=== PATIENT | male | born 1955 | race American Indian/Alaskan Native ===

== ENCOUNTER 2020-01-11 06:08 | Observation (INO) | payer MEDICARE ==
--- NOTE | 2020-01-09 10:35 | Anesthesia Consultation ---
Anesthesia Consult and Med Hx Date of service: 01/11/20 - Airway Anesthetic Teeth Evaluation: Poor, Dentures (full, upper) ROM Head & Neck: Adequate Mental/Hyoid Distance: Adequate Mallampati Class: Class III Intubation Access Assessment: Possibly Difficult - Pulmonary Exam CTA: Yes - Cardiac Exam Cardiac Exam: RRR - Pre-Operative Health Status ASA Pre-Surgery Classification: ASA3 Proposed Anesthetic Plan: General - Pulmonary Hx Smoking: Yes (quit 2006) Hx Respiratory Symptoms: No Hx Sleep Apnea: No (MAGI PRE SCREEN HIGH RISK.) - Cardiovascular System Hx Hypertension: No Hx Heart Attack/AMI: No Hx Percutaneous Transluminal Coronary Angioplasty (PTCA): No Hx Cardia Arrhythmia: No - Central Nervous System CVA: No Hx Psychiatric Problems: No - Gastrointestinal Hx Gastroesophageal Reflux Disease: No - Endocrine Hx Renal Disease: No Hx Liver Disease: No Hx Insulin Dependent Diabetes: Yes Hx Thyroid Disease: No - Other Systems Hx Obesity: No - Additional Comments Anesthesia Medical History Comments: No hx anesthetic complications. Hx DVTs on coumadin; last dose 01/03/20. Fasting glucose 140s-150s. Instructed to take 20 units levemir (2/3rds usual dose) night before surgery.
[2020-01-09 10:37] LABS: Hemoglobin 13.2 gm/dl (11.8-15.2); Mean Corpuscular HGB Conc 33 % (32-34); Mean Corpuscular Volume 82 fl (84-94); Platelet Count 187 K/mm3 (140-440); Red Blood Count 4.87 M/mm3 (3.65-5.03); Red Cell Distribution Width 13.7 % (13.2-15.2)
[2020-01-09 10:49] LABS: Alanine Aminotransferase 19 units/L (7-56); Albumin 4.3 g/dL (3.9-5); Blood Urea Nitrogen 18 mg/dL (9-20); Calcium 9.2 mg/dL (8.4-10.2); Hemolysis Index 12
[2020-01-09 10:58] LABS: BUN/Creatinine Ratio 26
[~2020-01-11 06:08] MED LIST: ACETAMINOPHEN 500 MG TAB PO SCH; GABAPENTIN 300 MG CAP PO NR; GENTAMICIN/NS 80 MG/100 ML 100 ML IV NR; LACTATED RINGERS 1,000 ML IV SCH; MIDAZOLAM 2 MG/2 ML INJ IV NR; VANCOMYCIN 1,250 MG in SODIUM CHLORIDE 0.9% 250ML 250 ML IV NR; VANCOMYCIN/NS 1 GM/250 ML 1 GM/250 ML BAG IV NR
[2020-01-11] MEDS ORDERED: SODIUM CHLORIDE 0.9% 500 ML 500 ML ONE (06:24)
[2020-01-11] MEDS ORDERED: GENTAMICIN 40 MG/ML VIAL 2 ML ONE (06:24)
[2020-01-11] MEDS ORDERED: NEOMY 40 MG/POLYMYXIN B 200,000 UNITS/ML (GU) AMPULE IR ONE ×2 (06:24→08:51)
[2020-01-11] MEDS ORDERED: BUPIVACAINE/PF (0.5%) 5 MG/1 ML 30 ML VIAL INFILTRATI ONE ×2 (06:24→08:46)
[2020-01-11] MEDS ORDERED: rifAMPin 600 MG VIAL ONE (06:26)
[2020-01-11] MEDS ORDERED: SODIUM CHLORIDE 0.9% 50 ML ONE (06:26)
[2020-01-11] MEDS ORDERED: SODIUM CHLORIDE P/F VIAL 10 ML 10 ML ONE (06:26)
[2020-01-11] MEDS ORDERED: BACTERIOSTATIC SODIUM CHLORIDE 0.9% 30 ML VIAL INFILTRATI ONE (06:46)
[2020-01-11] MEDS ORDERED: propofoL 200 MG/20 ML VIAL IV ONE (07:17)
[2020-01-11] MEDS ORDERED: HYDROmorphone 1 MG/1 ML INJ ONE (07:17)
[2020-01-11] MEDS ORDERED: LIDOCAINE MPF (2%) 20 MG/1 ML VIAL 5 ML ONE (07:19)
[2020-01-11] MEDS ORDERED: HYDROmorphone 1 MG/1 ML INJ IV PRN (07:23)
--- NOTE | 2020-01-11 07:24 | Anesthesia Day of Surgery ---
Anesthesia Day of Surgery - Day of Surgery Patient Examined: Yes Patient H&P Reviewed: Yes Patient is NPO: Yes
--- NOTE | 2020-01-11 07:33 | Short Stay Summary ---
Short Stay Documentation Date of service: 01/11/20 Narrative H&P: 64r old male with impotence unresponsive to medical managment wants implant - History Past Medical History: hypertension, hyperlipidemia, pulmonary embolism Social history: no significant social history - Allergies and Medications Current Medications: Allergies No Known Allergies Allergy (Verified 12/29/19 14:27) Home Medications Medication Instructions Recorded Confirmed Last Taken Type Insulin Aspart (Nf) [NovoLOG 6 units SQ TID 12/29/19 01/09/20 Unknown History Flexpen] Warfarin [Coumadin] 7.5 mg PO 3XW 12/29/19 12/29/19 Unknown History Warfarin [Coumadin] 10 mg PO 4XW 12/29/19 12/29/19 Unknown History AtorvaSTATin [Lipitor] 10 mg PO QHS 01/09/20 01/09/20 Unknown History Insulin Detemir [Levemir Flextouch] 30 unit SQ QHS 01/09/20 01/09/20 Unknown History Tamsulosin [Flomax] 0.4 mg PO QDAY 01/09/20 01/09/20 Unknown History Active Medications Acetaminophen (Tylenol) 1,000 mg PO PREOP ROSALEE Stop: 01/11/20 22:00 Gabapentin (Gabapentin) 300 mg PO PREOP NR Stop: 01/11/20 22:00 Hydromorphone HCl (Dilaudid) 0.5 mg IV Q10MIN PRN PRN Reason: Pain , Severe (7-10) Stop: 01/11/20 23:00 Lactated Ringer's (Lactated Ringers) 1,000 mls @ 100 mls/hr IV DIRECT ROSALEE Stop: 01/11/20 23:59 Gentamicin Sulfate/Sodium Chloride (Gentamicin/Ns 80 Mg/100 Ml) 100 mls @ 200 mls/hr IV PREOP NR; Protocol Stop: 01/11/20 22:00 Vancomycin HCl 1,250 mg/ (Sodium Chloride) 275 mls @ 166.667 mls/hr IV PREOP NR Stop: 01/11/20 22:00 Last Admin: 01/11/20 07:18 Dose: 166.667 mls/hr Documented by: Midazolam HCl (Versed) 2 mg IV PREOP NR Stop: 01/11/20 22:00 - Physical exam General appearance: no acute distress, well-nourished HEENT: Atraumatic, PERRLA Lungs: Clear to auscultation, Normal air movement Heart: Regular rate, No murmurs Gastrointestinal: normal Male Genitourinary: normal Rectal Exam: deferred Extremities: no ischemia, No edema - Brief post op/procedure progress note Date of procedure: 01/11/20 Pre-op diagnosis: ed Post-op diagnosis: same Procedure: ipp Anesthesia: GETA Surgeon: GORDY ESCALANTE Estimated blood loss: minimal Pathology: list (skin) Specimen disposition: to lab Condition: stable - Hospital course Hospital course: pt has scripts, post op info on chart wrap & garcía removed - Disposition Disposition: DC-01 TO HOME OR SELFCARE Short Stay Discharge Plan Follow up with: ALLIE CAMPBELL DO [Primary Care Provider] - 7 Days
[2020-01-11] MEDS ORDERED: rifAMPin 600 MG VIAL IV ONE (08:46)
[2020-01-11] MEDS ORDERED: SODIUM CHLORIDE 0.9% P/F 10 ML VIAL IV ONE (08:47)
[2020-01-11] MEDS ORDERED: SODIUM CHLORIDE 0.9% IRR 1,500 ML BOTTLE IR ONE (08:48)
[2020-01-11] MEDS ORDERED: ONDANSETRON 4 MG/2 ML INJ ONE (09:20)
[2020-01-11] MEDS ORDERED: MORPHINE 2 MG/1 ML INJ ONE (10:33)
--- NOTE | 2020-01-11 10:42 | Operative Report ---
PREOPERATIVE DIAGNOSIS: Erectile dysfunction. POSTOPERATIVE DIAGNOSIS: Erectile dysfunction, redundant scrotal skin. PROCEDURE: Insertion of inflatable penile prosthesis (Coloplast 22 cm). SURGEON: Eugene Medley MD SALES DEVELOPMENT COORDINATOR: Macario Lawson COMPLICATIONS: None. INDICATIONS: This patient is a 64-year-old gentleman with a history of hypertension and diabetes, referred by Dr. Diaz for erectile dysfunction, refractory to medical management and discussed options. He was counseled in the office. Risks, benefits and complications were explained. The patient agreed to proceed with surgical intervention. DESCRIPTION OF PROCEDURE: The patient was taken to the operative suite, placed in a supine position. After adequate general anesthesia, he was prepped and draped in a sterile fashion. Vazquez catheter was placed on the operative field, 60 mL of dilute Marcaine, 0.25% Marcaine was injected. No curvature or plaque could be appreciated. Trans-scrotal incision was made with the Bovie. Sharp dissection was taken down to the corporal bodies. A 2-0 Vicryl stay sutures were placed. Corporotomies were made. Measurements revealed a total length of 22 cm bilaterally, therefore a 22 cm Coloplast Titan device was prepped up in chair. A 125 mL reservoir was prepped, placed in the retropubic space via the right external ring. A 100 mL of saline was placed in the reservoir without difficulty. The device was prepped, placed into corporal bodies with the aid of a Hilario needle seated well. Corporal bodies were closed with 2-0 Vicryl in a running fashion. The quick click connection system was used to connect the reservoir with the pump without difficulty. Insufflation revealed an excellent cosmetic appearance. The pump was then placed in the dependent portion of the scrotum. A 2-0 Vicryl pursestring was used to secure the pump. The dartos layer was closed with 2-0 Vicryl in a running fashion. An additional layer reduced to some redundant skin, it was closed with additional layer of dartos fascia, was reinforced with 2-0 Vicryl in a running fashion. Redundant scrotal skin was excised. Skin was then closed with 3-0 Vicryl in interrupted fashion. Xeroform gauze was placed as well as a mummy wrap. The penis was taped on to the abdominal wall using the Vazquez. He was extubated and taken to recovery room in stable condition. He will be observed overnight and go home on Cipro and Thurman. JOB# [id number] NESTOR/NTS
--- NOTE | 2020-01-11 11:01 | Consultation ---
History of Present Illness - Reason for Consult Consult date: 01/11/20 medical management Requesting physician: GORDY ESCALANTE - History of Present Illness 64 YO Male with HTN, DM, Nicotine Dependence admitted for elective urologic procedure. Patient seen and evaluated upon arrival to his room. Patient denies fever, chills, chest pain, palpitation, productive cough, recent ill contacts. No reported nursing events. Patient denies pain. Patient appears comfortable and is in no acute distress. Past History Past Medical History: hypertension, hyperlipidemia, pulmonary embolism Social history: no significant social history Family history: hypertension Medications and Allergies Allergies Allergy/AdvReac Type Severity Reaction Status Date / Time No Known Allergies Allergy Verified 12/29/19 14:27 Home Medications Medication Instructions Recorded Confirmed Last Taken Type Insulin Aspart (Nf) [NovoLOG 6 units SQ TID 12/29/19 01/09/20 01/10/20 History Flexpen] Warfarin [Coumadin] 7.5 mg PO 3XW 12/29/19 12/29/19 1 Week Ago History ~01/04/20 Warfarin [Coumadin] 10 mg PO 4XW 12/29/19 12/29/19 1 Week Ago History ~01/04/20 AtorvaSTATin [Lipitor] 10 mg PO QHS 01/09/20 01/09/20 01/10/20 History Insulin Detemir [Levemir Flextouch] 30 unit SQ QHS 01/09/20 01/09/20 01/10/20 History Tamsulosin [Flomax] 0.4 mg PO QDAY 01/09/20 01/09/20 01/10/20 History Active Meds: Active Medications Acetaminophen (Tylenol) 1,000 mg PO PREOP ROSALEE Stop: 01/11/20 22:00 Last Admin: 01/11/20 06:55 Dose: 1,000 mg Documented by: Hydrocodone Bitart/Acetaminophen ([place] 5/325) 1 each PO Q4H PRN PRN Reason: Pain, Moderate (4-6) Gabapentin (Gabapentin) 300 mg PO PREOP NR Stop: 01/11/20 22:00 Last Admin: 01/11/20 06:55 Dose: 300 mg Documented by: Hydromorphone HCl (Dilaudid) 0.5 mg IV Q10MIN PRN PRN Reason: Pain , Severe (7-10) Stop: 01/11/20 23:00 Lactated Ringer's (Lactated Ringers) 1,000 mls @ 100 mls/hr IV DIRECT ROSALEE Stop: 01/11/20 23:59 Last Admin: 01/11/20 07:00 Dose: 100 mls/hr Documented by: Gentamicin Sulfate/Sodium Chloride (Gentamicin/Ns 80 Mg/100 Ml) 100 mls @ 200 mls/hr IV PREOP NR; Protocol Stop: 01/11/20 22:00 Vancomycin HCl 1,250 mg/ (Sodium Chloride) 275 mls @ 166.667 mls/hr IV PREOP NR Stop: 01/11/20 22:00 Last Admin: 01/11/20 07:18 Dose: 166.667 mls/hr Documented by: Sodium Chloride (Nacl 0.45% 1000 Ml) 1,000 mls @ 100 mls/hr IV DIRECT ROSALEE Cefazolin Sodium (Ancef/Ns 1 Gm/50 Ml) 1 gm in 50 mls @ 100 mls/hr IV Q8H ROSALEE; Protocol Midazolam HCl (Versed) 2 mg IV PREOP NR Stop: 01/11/20 22:00 Last Admin: 01/11/20 07:10 Dose: 2 mg Documented by: Morphine Sulfate (Morphine) 2 mg IV Q4H PRN PRN Reason: Pain, Moderate (4-6) Zolpidem Tartrate (Ambien) 10 mg PO QHS PRN PRN Reason: Sleep Review of Systems Constitutional: no weight loss, no weight gain, no fever, no chills Ears, nose, mouth and throat: no ear pain, no ear discharge, no tinnitis, no decreased hearing Cardiovascular: no chest pain, no orthopnea, no palpitations, no rapid/irregular heart beat, no edema Respiratory: no cough, no cough with sputum, no excessive sputum, no shortness of breath Gastrointestinal: no nausea, no vomiting, no diarrhea, no constipation, no change in bowel habits Genitourinary Male: no hematuria, no flank pain, no urinary frequency, no urinary hesitancy Rectal: no pain, no incontinence Musculoskeletal: no shooting arm pain, no arm numbness/tingling, no low back pain, no shooting leg pain Integumentary: no rash, no pruritis, no redness, no wounds, no jaundice Neurological: no transient paralysis, no paralysis, no parathesias, no tingling, no syncope, no tremors Psychiatric: no anxiety, no change in sleep habits, no insomnia, no hypersomnia, no change in appetite, no change in libido, no disorientation Endocrine: no cold intolerance, no polyphagia, no polyuria, no excessive sweating Hematologic/Lymphatic: no easy bruising, no easy bleeding Allergic/Immunologic: no urticaria, no allergic rhinitis Exam - Constitutional Vitals: Temp Pulse Resp BP Pulse Ox 98 F 62 14 140/84 100 01/11/20 10:40 01/11/20 10:40 01/11/20 10:40 01/11/20 10:40 01/11/20 10:40 General appearance: Present: no acute distress, well-nourished - EENT Eyes: Present: PERRL ENT: hearing intact, clear oral mucosa - Neck Neck: Present: supple, normal ROM - Respiratory Respiratory effort: normal Respiratory: bilateral: CTA - Cardiovascular Heart Sounds: Present: S1 & S2. Absent: rub, click - Extremities Extremities: pulses symmetrical, No edema Peripheral Pulses: within normal limits - Abdominal General gastrointestinal: Present: soft, non-tender, non-distended, normal bowel sounds Male genitourinary: Present: normal - Integumentary Integumentary: Present: clear, warm, dry - Musculoskeletal Musculoskeletal: gait normal, strength equal bilaterally - Psychiatric Psychiatric: appropriate mood/affect, intact judgment & insight - Neurologic Neurologic: CNII-XII intact, moves all extremities Results - Labs CBC & Chem 7: 01/09/20 10:05 01/09/20 10:05 Labs: Abnormal lab results 01/11/20 01/11/20 Range/Units 07:30 10:02 POC Glucose 140 H 126 H (70-105) Assessment and Plan - Patient Problems (1) Hypertension Current Visit: Yes Status: Acute Qualifiers: Hypertension type: essential hypertension Qualified Code(s): I10 - Essential (primary) hypertension Plan to address problem: Monitor blood pressure every shift, continue medical management, supportive care. (2) Diabetes Current Visit: Yes Status: Acute Plan to address problem: Sliding scale insulin therapy, Accu-Chek, consistent carbohydrate diet, hypoglycemia protocol. (3) Nicotine dependence Current Visit: Yes Status: Acute Qualifiers: Nicotine product type: cigarettes Substance use status: in withdrawal Qualified Code(s): F17.213 - Nicotine dependence, cigarettes, with withdrawal Plan to address problem: Smoking cessation counseling, supportive care, behavior change counseling, +15 minutes.
[2020-01-11] MEDS ORDERED: DEXTROSE 50% IN WATER (25GM) 50 ML SYRINGE IV PRN ×2 (11:05→18:45)
[2020-01-11] MEDS: INSULIN LISPRO 100 UNIT/ML VIAL 3 mL SUB-Q SCH ×3 (12:58→23:43)
--- NOTE | 2020-01-11 13:50 | Post Anesthesia Evaluation ---
- Post Anesthesia Evaluation Patient Participated: Yes Airway Patent: Yes Stable Respiratory Function: Yes Nausea/Vomiting: No Temp > 96.8F: Yes Pain Manageable: Yes Adequeate Hydration: Yes Anesthesia Complications: No
[2020-01-11] MEDS: MORPHINE 2 MG/1 ML INJ IV PRN ×2 (14:02→23:46)
[2020-01-11] MEDS: SODIUM CHLORIDE 0.45% 1000 ML 1,000 ML IV SCH ×2 (14:07→23:37)
[2020-01-11] MEDS: ceFAZolin/NS 1 GM/50 ML 1 GM/50 ML BAG IV SCH ×2 (16:00→23:41)
[2020-01-11] MEDS: HYDROcodone/ACETAMINOPHEN 5-325 MG TAB PO PRN (18:32)
[2020-01-11] MEDS ORDERED: ZOLPIDEM 5 MG TAB PO PRN (21:00)
[2020-01-12] MEDS: MORPHINE 2 MG/1 ML INJ IV PRN ×2 (03:16→05:56)
[2020-01-12] MEDS: INSULIN LISPRO 100 UNIT/ML VIAL 3 mL SUB-Q SCH ×2 (03:30→07:55)
[2020-01-12] MEDS: ceFAZolin/NS 1 GM/50 ML 1 GM/50 ML BAG IV SCH (07:29)
[2020-01-12] MEDS: HYDROcodone/ACETAMINOPHEN 5-325 MG TAB PO PRN (11:02)
[2020-01-12 11:45] VITALS: BP 120/62
--- NOTE | 2020-01-12 12:31 | Progress Note ---
Assessment and Plan (1) Hypertension Current Visit: Yes Status: Acute Qualifiers: Hypertension type: essential hypertension Qualified Code(s): I10 - Essential (primary) hypertension Plan to address problem: Monitor blood pressure every shift, continue medical management, supportive care. (2) Diabetes Current Visit: Yes Status: Acute Plan to address problem: Sliding scale insulin therapy, Accu-Chek, consistent carbohydrate diet, hypoglycemia protocol. (3) Nicotine dependence Current Visit: Yes Status: Acute Qualifiers: Nicotine product type: cigarettes Substance use status: in withdrawal Qualified Code(s): F17.213 - Nicotine dependence, cigarettes, with withdrawal Plan to address problem: Smoking cessation counseling, supportive care, behavior change counseling, +15 minutes. --Patient is clinically stable for discharge --Continue home meds and follow-up with urologist outpatient Subjective Date of service: 01/12/20 Interval history: Patient seen and examined. Medical records and medication list reviewed. No acute event overnight noted by the RN. Patient denies any chest pain or difficulty breathing. Patient is tolerating diet. Discussed plan of care at bedside with patient. Patient is stable for discharge Objective - Exam Narrative Exam: GENERAL: well-developed and well-nourished -Polish male lying on bed appeared to be in no discomfort. HEENT: Normocephalic. Atraumatic. No conjunctival congestion or icterus. Patient has moist mucous membranes. NECK: Supple. Trachea midline. CHEST/LUNGS: Clear to auscultated bilaterally, breathing nonlabored. No wheezes crackles or rhonchi. HEART/CARDIOVASCULAR: Regular in rate and rhythm. S1 and S2 positive. ABDOMEN: Abdomen is soft, nontender. Patient has normal bowel sounds. SKIN: There is no rash. Warm and dry. NEURO: No focal motor deficit. Follows command. MUSCULOSKELETAL: No joint effusion or tenderness. EXTRIMITY: No edema, no cyanosis or clubbing. PSYCH: Cooperative. - Constitutional Vitals: Vital Signs - 12hr 01/12/20 01/12/20 06:23 11:00 Temperature 98.6 F 98.0 F Pulse Rate 86 78 Respiratory 18 18 Rate Blood Pressure 126/64 Blood Pressure 120/62 [Left] O2 Sat by Pulse 90 94 Oximetry - Labs CBC & Chem 7: 01/09/20 10:05 01/09/20 10:05 Labs: Abnormal lab results 01/11/20 01/11/20 01/12/20 Range/Units 16:24 23:54 07:54 POC Glucose 215 H 159 H 208 H (70-105) 01/12/20 Range/Units 11:58 POC Glucose 185 H (70-105)
[2020-01-12] MEDS ORDERED: TAMSULOSIN 0.4 MG CAP PO ONE (14:20)
== END 2020-01-12 15:30 | disposition home or self-care (01) ==
LOC: OR 06:08 → 3B 09:56
PROVIDERS: ADMIT Urology; ATTEND Urology
DX: N52.9 Male erectile dysfunction, unspecified (principal); Z20.828 Contact with and (suspected) exposure to other viral communicable diseases; E11.9 Type 2 diabetes mellitus without complications; F17.210 Nicotine dependence, cigarettes, uncomplicated; E78.5 Hyperlipidemia, unspecified; Z79.899 Other long term (current) drug therapy; Z86.711 Personal history of pulmonary embolism; Z79.01 Long term (current) use of anticoagulants; Z79.4 Long term (current) use of insulin
CPT/HCPCS: 36415; 54401; 80053; 82962; 85027; 88305; 96361; 96365; 96366; 96375; 96376; C1813; G0378; J0690; J1170; J1580; J2250; J2270; J2405; J2704; J3370; J3490; J7030; J7040; J7050; J7120; U0003

== ENCOUNTER 2020-04-16 13:30 | Outpatient (CLI) | payer MEDICARE ==
--- NOTE | 2020-04-16 14:43 | XRay Report ---
CHEST 2 VIEWS INDICATION / CLINICAL INFORMATION: Shortness of breath. COMPARISON: None available. FINDINGS: SUPPORT DEVICES: None. HEART / MEDIASTINUM: Normal heart size. Atherosclerosis in the thoracic aorta. LUNGS / PLEURA: There are mild patchy peripheral opacities. No pneumothorax. ADDITIONAL FINDINGS: No significant additional findings. IMPRESSION: 1. Mild patchy peripheral pulmonary opacities that could indicate viral pneumonia. Signer Name: Suraj Barrera MD Signed: 04/16/2020 2:39 PM Workstation Name: [id number]
== END 2020-04-16 13:31 | disposition home or self-care (01) ==
LOC: XRAY 13:30
PROVIDERS: ATTEND Internal Medicine Hematology & Oncology
DX: J12.9 Viral pneumonia, unspecified (principal); R91.8 Other nonspecific abnormal finding of lung field; I70.0 Atherosclerosis of aorta
CPT/HCPCS: 71046

== ENCOUNTER 2020-05-14 08:21 | Outpatient (CLI) | payer MEDICARE ==
--- NOTE | 2020-05-14 09:47 | XRay Report ---
RIGHT RIBS HISTORY: Shortness of breath, right rib pain COMPARISON: None. TECHNIQUE: 4 views of the right ribs were obtained. FINDINGS: Bones: No fracture or dislocation. Joint spaces: Maintained. Soft tissues: No significant abnormality. Additional findings: None. IMPRESSION: 1. No significant abnormality. CHEST 2 VIEWS INDICATION: SHORTNESS OF BREATH.. COMPARISON: 04/16/2020 FINDINGS: Support devices: None. Heart: Within normal limits. Lungs/pleura: No acute air space or interstitial disease. No pneumothorax. Additional findings: None. IMPRESSION: No acute findings. Signer Name: Jayden Jeff Jr, MD Signed: 05/14/2020 9:43 AM Workstation Name: [id number]
== END 2020-05-14 08:22 | disposition home or self-care (01) ==
LOC: XRAY 08:21
PROVIDERS: ATTEND Internal Medicine Hematology & Oncology
DX: R06.09 Other forms of dyspnea (principal); R07.81 Pleurodynia
CPT/HCPCS: 71046

== ENCOUNTER 2021-07-25 15:51 | Outpatient (CLI) | payer MEDICARE ==
--- NOTE | 2021-07-25 16:02 | XRay Report ---
BILATERAL SHOULDERS 3 VIEWS INDICATION: BILATERAL SHOULDER PAIN. COMPARISON: None. IMPRESSION: No acute osseous or soft tissue abnormality. Mild osteoarthritic changes are identifi ed bilaterally. RIGHT KNEE 3 VIEWS INDICATION: Right knee pain. COMPARISON: None. IMPRESSION: No acute osseous abnormality. Mild to moderate tricompartmental osteoarthritic changes are identified. The medial compartment is most affected. There is mild tibial spine spurring. Mild ca lcinosis of the menisci is also present. The soft tissues are unremarkable. No significant joint effu sabrina. Signer Name: Jayden Jeff Jr, MD Signed: 07/25/2021 3:52 PM Workstation Name: [id number]
--- NOTE | 2021-07-25 16:42 | Vascular Lab Report ---
DUPLEX DOPPLER LOWER EXTREMITY VEINS, LEFT INDICATION / CLINICAL INFORMATION: I82.402 ACUTE EMBOLISM AND THROMBOSIS OF VEINS. TECHNIQUE: Duplex doppler imaging was performed through the veins of the left lower extremity using venous compr ession and other maneuvers. COMPARISON: None available. FINDINGS: LEFT COMMON FEMORAL VEIN: Negative. LEFT FEMORAL VEIN: Negative. LEFT POPLITEAL VEIN: Chronic thrombus. No acute thrombus. LEFT CALF VEINS: Negative. ADDITIONAL FINDINGS: None. IMPRESSION: 1. No acute DVT. 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 Signer Name: Suraj Barrera MD Signed: 07/25/2021 4:38 PM Workstation Name: [id number]
== END 2021-07-25 15:52 | disposition home or self-care (01) ==
LOC: XRAY 15:51
PROVIDERS: ATTEND Internal Medicine Hematology & Oncology
DX: M19.012 Primary osteoarthritis, left shoulder (principal); M19.011 Primary osteoarthritis, right shoulder; M77.8 Other enthesopathies, not elsewhere classified; I82.402 Acute embolism and thrombosis of unspecified deep veins of left lower extremity; E83.59 Other disorders of calcium metabolism